=== PATIENT | female | born 1940 | race Hispanic/Latino ===

== ENCOUNTER 2022-10-08 16:32 | Emergency (ER) | payer OTHER ==
[~2022-10-08] VITALS: Ht 160 cm; Wt 63.5 kg
[2022-10-08] MEDS ORDERED: IPRATROPIUM/ALBUTEROL SULFATE 3 ML SOLUTION IH ONE (17:30)
[2022-10-08] MEDS ORDERED: 0.9% NACL 500ML IV.SOLN 500 ML IV SCH (17:30)
[2022-10-08 17:32] LABS: BASOPHILS % (AUTO) 0.2 % (0.0-5.0); EOSINOPHILS % (AUTO) 0.1 % (0.0-8.0); HEMATOCRIT 40.8 % (36-48); LYMPHOCYTES % (AUTO) 17.4 % (21.0-51.0); MEAN CORPUSCULAR HEMOGLOBIN 31.7 pg (27.0-33.0); MEAN CORPUSCULAR HGB CONC 32.1 g/dL (32.0-36.0); MEAN CORPUSCULAR VOLUME 98.8 fL (79-99); MONOCYTES % (AUTO) 11.2 % (3.0-13.0); NEUTROPHILS % (AUTO) 70.7 % (40.0-77.0); PLATELET COUNT (AUTO) 186 K/uL (130-400); RED BLOOD CELL COUNT(AUTO) 4.13 MIL/uL (4.00-5.50); RED CELL DISTRIBUTION WIDTH 12.2 % (11.0-15.5); WHITE BLOOD COUNT (AUTO) 10.6 K/uL (4.8-10.8)
[2022-10-08 17:41] LABS: CREATININE 0.8 mg/dL (0.5-1.5); POTASSIUM 3.9 mmol/L (3.5-5.1)
[2022-10-08 17:48] LABS: ALBUMIN 3.7 g/dL (3.5-5.0); TOTAL PROTEIN, SERUM 8.2 g/dL (6.0-8.3)
[2022-10-08 18:07] LABS: B-TYPE NATRIURETIC PEPTIDE 99 pg/mL (0-100)
[2022-10-08] MEDS ORDERED: IPRA3AMP24 IH (18:18)
[2022-10-08] MEDS ORDERED: GUAI-904 PO (18:18)
[2022-10-08] MEDS ORDERED: NIRM1TAB5 PO (18:18)
[2022-10-08 19:34] VITALS: BP 140/74
== END 2022-10-08 21:20 | disposition home or self-care (01) ==
LOC: EDH 16:32
DX: U07.1 COVID-19 (principal); E86.0 Dehydration; I10 Essential (primary) hypertension; E78.00 Pure hypercholesterolemia, unspecified; F03.90 Unspecified dementia, unspecified severity, without behavioral disturbance, psychotic disturbance, mood disturbance, and anxiety; Z88.5 Allergy status to narcotic agent
CPT/HCPCS: 99284; 96360; 71045; 87635; 80053; 83880; 85025; 36415; 93005; C9803; J7040

== ENCOUNTER → 2024-10-27 | Outpatient (CLI) | payer OTHER ==
[~2024-10-27] MED LIST: AMOX1TAB16 PO; ASPI-1197 PO; DIATR MEGLU/DIATRIZOATE SODIUM 30 ML BOTTLE ONE; DONE10TA43 PO; DORZ10DR9 OU; GLIM4TAB36 PO; ISOS10TA2 PO; LATA2.5D14 OU; MEMA10TA21 PO
--- NOTE | 2024-10-27 16:20 | HMCIMG ---
Exam Type: ABD 1VW Clinical Information: ATTENTION TO GASTROSTOMY Comparison: None Findings: XR Eval Gastrostomy Perc W/ Contrast TECHNIQUE: Single view of the abdomen was obtained. 30 cc of Gastrografin injected through the gastric tube. Contrast outlines the stomach and small bowel. There is no evidence of extravasation. Bowel gas pattern is otherwise unremarkable. IMPRESSION: Gastric tube in good position within the stomach.
== END | disposition home or self-care (01) ==
LOC: RAH 14:50
PROVIDERS: ATTEND Internal Medicine Gastroenterology
DX: Z43.1 Encounter for attention to gastrostomy (principal)
CPT/HCPCS: 74018; Q9963